=== PATIENT | male | born 1970 | race Caucasian/White ===

== ENCOUNTER 2020-04-26 17:12 | Emergency (ER) | payer BC ==
[~2020-04-26] VITALS: Ht 180.3 cm; Wt 98.9 kg
[2020-04-26 17:23] VITALS: BP_SYST 153
[2020-04-26] MEDS ORDERED: LIDOCAINE/EPI 1% 1:100000 20 ML VIAL INJ ONE ×2 (18:29→18:30)
[2020-04-26] MEDS ORDERED: BACITRACIN 1 GM OINT TP ONE ×2 (19:20→19:45)
[2020-04-26] MEDS ORDERED: CEPH-568 PO (19:24)
[2020-04-26] MEDS ORDERED: cephALEXin 500 MG CAPSULE PO ONE (19:30)
[2020-04-26 19:37] VITALS: BP_SYST 139
== END 2020-04-26 19:37 | disposition home or self-care (01) ==
LOC: SED 17:12
DX: T81.30XA Disruption of wound, unspecified, initial encounter (principal); X58.XXXA Exposure to other specified factors, initial encounter; Y93.89 Activity, other specified; Y92.89 Other specified places as the place of occurrence of the external cause; Y99.8 Other external cause status
CPT/HCPCS: 99283